=== PATIENT | female | born 1985 | race African-American/Black ===

== ENCOUNTER 2022-05-04 21:28 | Emergency (ER) | payer SELFPAY ==
[~2022-05-04] VITALS: Ht 170.2 cm; Wt 59.0 kg
--- NOTE | 2022-05-04 22:00 | NUR ---
Patient is able to walk to the restroom with steady gait
--- NOTE | 2022-05-04 22:12 | NUR ---
Patient going in and out of the room. Security at bedside
[2022-05-04] MEDS ORDERED: THIAMINE HCL 100 MG TABLET PO ONE (22:15)
[2022-05-04] MEDS ORDERED: THIAMINE HCL 100 MG TABLET ONE (22:29)
--- NOTE | 2022-05-05 00:12 | NUR ---
Patient's mother was waiting outside for patient and platient elope before getting [facility].
--- NOTE | 2022-05-05 00:18 | NUR ---
Patient eloped from facility. ER physician notified.
== END 2022-05-05 00:19 | disposition left against medical advice (07) ==
LOC: ER 21:32
DX: F10.129 Alcohol abuse with intoxication, unspecified (principal); R00.0 Tachycardia, unspecified
CPT/HCPCS: A4663